=== PATIENT | male | born 1950 | race Caucasian/White ===

== ENCOUNTER 2018-04-03 13:15 | Inpatient (IN) | payer OTHER ==
[~2018-04-03] VITALS: Ht 175.3 cm; Wt 92.5 kg
[~2018-04-03 13:15] MED LIST: ASA81 MG PO; ATORVASTATIN CA10 MG PO; COZAAR25 MG PO; LEXAPRO5 MG PO; NEURONTIN300 MG PO; PERCOCET 5-3251 EACH PO; POLY119PG PO; PROTONIX20 MG PO; SYNTHROID75 MCG PO; ZOFRAN ODT4 MG PO
[2018-04-03] MEDS ORDERED: LEXAPRO PO (14:17)
[2018-04-03] MEDS ORDERED: [UNRECOGNIZED DRUG - OTHER] (14:18)
[2018-04-03] MEDS ORDERED: OSTERA TABLET1 EACH PO (14:19)
[2018-04-11] MEDS ORDERED: ZOFRAN ODT4 MG PO (12:35)
[2018-04-11] MEDS ORDERED: MIRALAX17 GM PO (12:35)
[2018-04-11] MEDS ORDERED: ULTRACET PO (12:35)
[2018-04-11] MEDS ORDERED: NEURONTIN300 MG PO (12:35)
[2018-04-15] MEDS ORDERED: INTESTINEX680 M1 PO (10:42)
[2018-04-15] MEDS ORDERED: PROTONIX40 MG PO (10:42)
[2018-04-15] MEDS ORDERED: AMOX1TAB5 PO (10:42)
== END 2018-04-15 13:41 | disposition home or self-care (01) | DRG 342 ==
LOC: SURG 04-11 08:07 → O/R 04-11 08:07 → SURG 04-11 13:15 → MEDI 04-12 08:15 → SURG 04-12 08:15
PROVIDERS: Surgery
PROC: 0JX80ZZ Transfer Abdomen Subcutaneous Tissue and Fascia, Open Approach (ICD-10-PCS; 2018-04-11)
PROC: 4A033R1 Measurement of Arterial Saturation, Peripheral, Percutaneous Approach (ICD-10-PCS; 2018-04-11)
PROC: 0DTJ4ZZ Resection of Appendix, Percutaneous Endoscopic Approach (ICD-10-PCS; principal; 2018-04-11 18:15)
PROC: 0WQF4ZZ Repair Abdominal Wall, Percutaneous Endoscopic Approach (ICD-10-PCS; 2018-04-11 18:15)
PROC: 3E0F7GC Introduction of Other Therapeutic Substance into Respiratory Tract, Via Natural or Artificial Opening (ICD-10-PCS; 2018-04-12)
PROC: 4A12X4Z Monitoring of Cardiac Electrical Activity, External Approach (ICD-10-PCS; 2018-04-12)
DX: D12.1 Benign neoplasm of appendix (principal); K43.0 Incisional hernia with obstruction, without gangrene; J95.89 Other postprocedural complications and disorders of respiratory system, not elsewhere classified; J98.11 Atelectasis; T81.4XXA Infection following a procedure, initial encounter; L03.311 Cellulitis of abdominal wall; I11.9 Hypertensive heart disease without heart failure; E03.8 Other specified hypothyroidism; G47.33 Obstructive sleep apnea (adult) (pediatric); F32.89 Other specified depressive episodes; R09.02 Hypoxemia

== ENCOUNTER 2019-02-08 22:14 | Emergency (ER) | payer OTHER ==
[~2019-02-08] VITALS: Ht 175.3 cm; Wt 89.4 kg
[~2019-02-08 22:14] MED LIST changes: +AMOX1TAB5 PO; +INTESTINEX680 M1 PO; +LEXAPRO PO; +MIRALAX17 GM PO; +OSTERA TABLET1 EACH PO; +PROTONIX40 MG PO; +ULTRACET PO; +[UNRECOGNIZED DRUG - OTHER]
[2019-02-09] MEDS ORDERED: KETO10TA2 PO (07:44)
[2019-02-09] MEDS ORDERED: PEPCID AC20 MG PO (07:44)
== END 2019-02-09 08:14 | disposition home or self-care (01) ==
LOC: ER 22:14
DX: R10.12 Left upper quadrant pain (principal)

== ENCOUNTER 2019-04-16 07:43 | Inpatient (IN) | payer OTHER ==
[~2019-04-16] VITALS: Ht 175.3 cm; Wt 89.8 kg
[~2019-04-16 07:43] MED LIST changes: +KETO10TA2 PO; +PEPCID AC20 MG PO
[2019-04-20] MEDS ORDERED: TRAMADOL HCL50 MG PO (09:16)
[2019-04-20] MEDS ORDERED: MIRALAX17 GM PO (09:16)
[2019-04-20] MEDS ORDERED: TYLENOL EXTRA500 MG PO (09:16)
[2019-04-20] MEDS ORDERED: NEURONTIN300 MG PO (09:16)
== END 2019-04-20 10:19 | disposition home or self-care (01) | DRG 354 ==
LOC: O/R 04-17 09:30 → SURG 04-17 09:30 → SURH 04-17 10:07 → SURG 04-17 15:54 → SURH 04-17 17:42 → SURG 04-17 19:37
PROVIDERS: ADMIT Surgery
PROC: 0KXL0ZZ Transfer Left Abdomen Muscle, Open Approach (ICD-10-PCS; 2019-04-17)
PROC: 0KXK0ZZ Transfer Right Abdomen Muscle, Open Approach (ICD-10-PCS; 2019-04-17)
PROC: 3E0F7GC Introduction of Other Therapeutic Substance into Respiratory Tract, Via Natural or Artificial Opening (ICD-10-PCS; 2019-04-17)
PROC: 4A033R1 Measurement of Arterial Saturation, Peripheral, Percutaneous Approach (ICD-10-PCS; 2019-04-17)
PROC: 0WUF4JZ Supplement Abdominal Wall with Synthetic Substitute, Percutaneous Endoscopic Approach (ICD-10-PCS; principal; 2019-04-17 13:45)
DX: K43.0 Incisional hernia with obstruction, without gangrene (principal); J95.89 Other postprocedural complications and disorders of respiratory system, not elsewhere classified; J98.11 Atelectasis; E87.2 Acidosis; K42.0 Umbilical hernia with obstruction, without gangrene; E03.8 Other specified hypothyroidism; R09.02 Hypoxemia; E78.49 Other hyperlipidemia; G47.33 Obstructive sleep apnea (adult) (pediatric); R53.1 Weakness; I11.9 Hypertensive heart disease without heart failure

== ENCOUNTER 2022-02-16 06:02 | Day surgery (SDC) | payer OTHER ==
[~2022-02-16 06:02] MED LIST changes: +ATORVASTATIN CA20 MG PO; +FENOFIB PO; +LEXAP PO; +PANTOPRAZOLE SO40 M2 PO; +TRAMADOL HCL50 MG PO; +TYLENOL EXTRA500 MG PO
[2022-02-16] MEDS ORDERED: ULTRAM50 MG PO (07:48)
[2022-02-16] MEDS ORDERED: TYLENOL ARTHRI650 MG PO (07:48)
[2022-02-16] MEDS ORDERED: MIRALAX17 GM PO (07:48)
[2022-02-16] MEDS ORDERED: KETO10TA2 PO (09:44)
== END 2022-02-16 12:35 | disposition home or self-care (01) ==
LOC: CIR.AMB 06:02
PROVIDERS: ATTEND Surgery
DX: K80.10 Calculus of gallbladder with chronic cholecystitis without obstruction (principal); K82.8 Other specified diseases of gallbladder; R59.0 Localized enlarged lymph nodes; Z20.822 Contact with and (suspected) exposure to COVID-19; I10 Essential (primary) hypertension; E78.00 Pure hypercholesterolemia, unspecified; Z86.16 Personal history of COVID-19; E03.9 Hypothyroidism, unspecified; R42 Dizziness and giddiness